=== PATIENT | male | born 1990 | race Two or more races ===

== ENCOUNTER 2018-09-11 04:34 | Emergency (ER) | payer MEDICAID, OTHER ==
[~2018-09-11] VITALS: Ht 167.6 cm; Wt 63.5 kg
[2018-09-11 04:35] VITALS: BP 123/71
--- NOTE | 2018-09-11 04:35 | NUR ---
ER Nurse Note: Pt ROBERT RA 62 d/t ETOH. Pt was found at on the streets of [facility], on ground. Pt a&ox3, VSS, no signs of acute distress. Pt ambulatory. Pt has bruise on knee, skin intact. No trauma noted. Will continue to monitor.
--- NOTE | 2018-09-11 04:49 | Emergency Room Report ---
History of Present Illness General Chief Complaint: Alcohol Intoxication Source: Patient, EMS Present Illness HPI This is a 27-year-old L who presents with chief complaint of alcohol intoxication. He was found by a scooter on the sidewalk. Bystander called 911. Patient admits to drinking alcohol tonight. He does have abrasion to his left upper lip. No head injury. He does have abrasion to his knees. Patient denies any drug abuse. No suicidal thoughts homicidal thought. Allergies: Coded Allergies: No Known Allergies (Unverified , 09/11/18) Patient History Past Medical History: see triage record, old chart reviewed Past Surgical History: none Pertinent Family History: none Social History: Reports: alcohol use Immunizations: other Reviewed Nursing Documentation: PMH: Agreed; PSxH: Agreed Nursing Documentation-PMH Past Medical History: No Stated History Review of Systems Eye: Denies: eye pain, blurred vision ENT: Denies: ear pain, nose congestion, throat swelling Respiratory: Denies: cough, shortness of breath Cardiovascular: Denies: chest pain, palpitations Gastrointestinal: Denies: abdominal pain, diarrhea, nausea, vomiting Musculoskeletal: Denies: back pain, joint pain Skin: Denies: rash Neurological: Denies: headache, numbness Endocrine: Denies: increased thirst, increased urine Hematologic/Lymphatic: Denies: easy bruising All Other Systems: negative except mentioned in HPI Physical Exam Vital Signs Date Time Temp Pulse Resp B/P (MAP) Pulse Ox O2 Delivery O2 Flow Rate FiO2 09/11/18 04:22 98.2 87 16 123/71 (88) 97 Room Air Vitals normal Sp02 EP Interpretation: reviewed, normal General Appearance: well appearing, no apparent distress, alert Head: normocephalic, atraumatic Eyes: bilateral eye PERRL, bilateral eye EOMI ENT: hearing grossly normal, normal pharynx, other - Patient to left upper lip. No laceration. No dental injury. Neck: full range of motion, supple, no meningismus Respiratory: chest non-tender, lungs clear, normal breath sounds Cardiovascular #1: regular rate, rhythm, no murmur Gastrointestinal: normal bowel sounds, non tender, no mass, no organomegaly, no bruit, non-distended Musculoskeletal: back normal, gait/station normal, normal range of motion, other - Abrasion to bilateral knees. Psychiatric: mood/affect normal Medical Decision Making Diagnostic Impression: Primary Impression: Acute alcoholic intoxication Qualified Codes: F10.920 - Alcohol use, unspecified with intoxication, uncomplicated Additional Impression: Abrasion of lip, initial encounter ER Course Patient presents with alcohol intoxication and minor lip injury. No evidence of head injury to warrant CT scan or x-ray. He is he medically stable. We will watch him until clinical sobriety. Will discharge home afterward. Last Vital Signs Date Time Temp Pulse Resp B/P (MAP) Pulse Ox O2 Delivery O2 Flow Rate FiO2 09/11/18 04:31 87 16 Room Air 09/11/18 04:22 98.2 123/71 (88) 97 Status: improved Disposition: HOME, SELF-CARE Condition: Stable Scripts Unable to Obtain Active Prescriptions or Reported Meds Patient Instructions: Alcohol Intoxication, [id number] Additional Instructions: Follow-up with your doctor in 7 days. Stop drinking alcohol to excess. Return if worse. Sterling Jordan MD Sep 11, 2018 04:49
--- NOTE | 2018-09-11 06:38 | NUR ---
ER Nurse Note: Pt asleep. Pt tried to get out of bed, easily redirected. Pt is cooperative, no signs of distress. Pt has unsteady gait, not ready for discharge. All safety measures met, will continue to montior.
[2018-09-11 06:39] VITALS: BP 118/74
--- NOTE | 2018-09-11 07:06 | NUR ---
ER Nurse Note: Pt calm, asleep, no signs of distress. Chest rise and fall noted, RA. Pending DC when stable. Will endorse care to oncoming shift for continuity of care.
--- NOTE | 2018-09-11 07:20 | NUR ---
ED Nurse Note: received patient in bed. patient is alert awake to name and place, drowsy, gait is unsteady, patient is able to use urinal by himself. patient's vital signs stable.
[2018-09-11 07:30] VITALS: BP 103/58
--- NOTE | 2018-09-11 07:36 | NUR ---
ED Nurse Note: patient taken to CT head.
--- NOTE | 2018-09-11 07:47 | NUR ---
ED Nurse Note: patient came back from CT
--- NOTE | 2018-09-11 08:01 | Diagnostic Imaging Report ---
EXAM: CT Head Without Intravenous Contrast. CLINICAL HISTORY: PAIN TECHNIQUE: Axial computed tomography images of the head/brain without intravenous contrast. CTDI is 70.5 mGy and DLP is 1291 mGy-cm. One or more of the following dose reduction techniques were used: automated exposure control, adjustment of the mA and/or kV according to patient size, use of iterative reconstruction technique. COMPARISON: No relevant prior studies available. FINDINGS: Brain: Unremarkable. No hemorrhage. No significant white matter disease. No edema. Ventricles: Unremarkable. No ventriculomegaly. Bones: No acute fracture. Sinuses: Unremarkable as visualized. No acute sinusitis. Mastoid air cells: Unremarkable as visualized. No mastoid effusion. IMPRESSION: No evidence of acute intracranial abnormality.
--- NOTE | 2018-09-11 09:04 | NUR ---
ED Nurse Note: patient is asleep, chest rise and fall without complication
[2018-09-11 10:37] VITALS: BP 103/58
--- NOTE | 2018-09-11 10:37 | NUR ---
ER DISCHARGE NOTE: patient is being discharged, patient was able to walk around in steady gait. patient is now alert awake x4. Patient is cleared to be discharged per ERMD DR HEREDIA, pt is aox4, on room air, with stable vital signs. pt was given dc and prescription instructions, pt was able to verbalize understanding, pt id band removed without complications. pt is able to ambulate with steady gait. pt took all belongings.
== END 2018-09-11 10:37 | disposition home or self-care (01) ==
LOC: EDBD 04:34 → EMR 05:17
DX: F10.920 Alcohol use, unspecified with intoxication, uncomplicated (principal); S00.511A Abrasion of lip, initial encounter; S80.212A Abrasion, left knee, initial encounter; S80.211A Abrasion, right knee, initial encounter; X58.XXXA Exposure to other specified factors, initial encounter; Y93.9 Activity, unspecified; Y92.480 Sidewalk as the place of occurrence of the external cause
CPT/HCPCS: 70450; 99284